=== PATIENT | male | born 1970 | race Caucasian/White ===

== ENCOUNTER 2017-03-04 20:50 | Emergency (ER) | payer BC ==
[~2017-03-04] VITALS: Ht 177.8 cm; Wt 136.1 kg
[2017-03-04] MEDS ORDERED: HYDROCODONE BIT1 T11 PO (22:54)
== END 2017-03-04 23:45 | disposition home or self-care (01) ==
LOC: ED 20:50
DX: T22.211A Burn of second degree of right forearm, initial encounter (principal); T21.24XA Burn of second degree of lower back, initial encounter; X08.8XXA Exposure to other specified smoke, fire and flames, initial encounter; Y93.89 Activity, other specified; Y92.9 Unspecified place or not applicable; Y99.9 Unspecified external cause status